=== PATIENT | female | born 2000 | race Caucasian/White ===

== ENCOUNTER 2022-03-31 21:51 | Emergency (ER) | payer SELFPAY ==
[~2022-03-31] VITALS: Ht 165.1 cm; Wt 93.0 kg
[2022-04-01 02:00] VITALS: BP 140/87
== END 2022-04-01 02:05 | disposition home or self-care (01) ==
LOC: ER 21:51
DX: F10.129 Alcohol abuse with intoxication, unspecified (principal); Y90.9 Presence of alcohol in blood, level not specified
CPT/HCPCS: 82962; 99283